=== PATIENT | male | born 1955 | race American Indian/Alaskan Native ===

== ENCOUNTER 2017-11-02 10:16 | Outpatient (CLI) | payer BC | END 2017-11-02 20:40 | disposition home or self-care (01) | LOC: US 10:16 | DX: E04.1 Nontoxic single thyroid nodule (principal) ==

== ENCOUNTER 2017-11-10 11:41 | Outpatient (CLI) | payer BC ==
[2017-11-10 12:29] LABS: PLATELET COUNT 248 K/uL (142-355)
[2017-11-10 12:57] LABS: POTASSIUM 3.5 mmol/L (3.6-5.2)
== END 2017-11-10 23:32 | disposition home or self-care (01) ==
LOC: LABW 11:41
PROVIDERS: Internal Medicine
DX: I10 Essential (primary) hypertension (principal); Z12.5 Encounter for screening for malignant neoplasm of prostate
CPT/HCPCS: 36415; 80053; 80061; 81000; 84153; 84439; 84443; 85027

== ENCOUNTER 2018-01-16 09:10 | Outpatient (CLI) | payer BC ==
[2018-01-16 09:28] LABS: PLATELET COUNT 217 K/uL (142-355)
[2018-01-16 09:52] LABS: POTASSIUM 3.8 mmol/L (3.6-5.2)
== END 2018-01-16 20:36 | disposition home or self-care (01) ==
LOC: LABW 09:10
PROVIDERS: Internal Medicine
DX: I10 Essential (primary) hypertension (principal); Z12.5 Encounter for screening for malignant neoplasm of prostate; E04.1 Nontoxic single thyroid nodule
CPT/HCPCS: 36415; 80053; 80061; 81000; 84153; 84439; 84443; 85027

== ENCOUNTER 2021-10-09 11:34 | Outpatient (CLI) | payer BC | END 2021-10-09 18:57 | disposition home or self-care (01) | LOC: US 11:34 | PROVIDERS: ATTEND Internal Medicine | DX: E04.1 Nontoxic single thyroid nodule (principal) ==

== ENCOUNTER 2022-08-15 09:03 | Outpatient (CLI) | payer BC | END 2022-08-15 19:16 | disposition home or self-care (01) | LOC: CT 09:03 | PROVIDERS: ATTEND Internal Medicine | DX: R10.31 Right lower quadrant pain (principal) | CPT/HCPCS: 36415; 82565; 84520; Q9963 ==